=== PATIENT | female | born 1995 | race African-American/Black ===

== ENCOUNTER 2021-06-11 18:22 | Emergency (ER) | payer BC ==
[~2021-06-11] VITALS: Ht 154.9 cm; Wt 108.9 kg
[2021-06-11 18:35] VITALS: BP 124/64
--- NOTE | 2021-06-11 21:17 | NUR ---
PT AMBULATED TO BED #6
[2021-06-11 23:17] LABS: BASOPHILS # (AUTO) 0.1 K/uL (0.00-0.22); BASOPHILS % (AUTO) 0.4 % (0.0-2.0); EOSINOPHILS # (AUTO) 0.2 K/uL (0-0.4); EOSINOPHILS % (AUTO) 1.1 % (0.0-4.0); HEMATOCRIT 35.4 % (36-48); HEMOGLOBIN 11.6 g/dL (12.0-16.0); LYMPHOCYTES # (AUTO) 3.9 K/uL (2.5-16.5); LYMPHOCYTES % (AUTO) 24.5 % (20.5-51.1); MEAN CORPUSCULAR HEMOGLOBIN 27 pg (27-31); MEAN CORPUSCULAR HGB CONC 33 g/dL (33-37); MEAN CORPUSCULAR VOLUME 83.6 fL (80-94); MONOCYTES # (AUTO) 0.8 K/uL (0.8-1.0); NEUTROPHILS # (AUTO) 11.1 K/uL (1.8-7.7); PLATELET COUNT (AUTO) 457 K/uL (140-450); RED BLOOD CELL COUNT(AUTO) 4.24 MIL/uL (4.20-5.40)
[2021-06-11] MEDS ORDERED: KETOROLAC 30 MG/ML VIAL IVP ONE (23:30)
[2021-06-11 23:33] LABS: ALBUMIN 3.6 g/dL (3.4-5.0); ANION GAP 12.5 (8-16); CARBON DIOXIDE 29.1 mmol/L (21-32); CREATININE 0.8 mg/dL (0.6-1.3); POTASSIUM 3.6 mmol/L (3.5-5.1); TOTAL BILIRUBIN 0.1 mg/dL (0.0-1.0)
[2021-06-11 23:35] LABS: CHOL/HDL RATIO 4.2 (1-4.5)
--- NOTE | 2021-06-12 00:28 | NUR ---
PT TAKEN TO CT VIA W/C
[2021-06-12] MEDS ORDERED: LEVOFLOXACIN 500 MG/D5W PREMIX 100 ML IV ONE (01:30)
[2021-06-12] MEDS ORDERED: cefTRIAXone 1,000 MG VIAL ONE (01:43)
[2021-06-12] MEDS ORDERED: AMOX-1000 PO (02:09)
[2021-06-12] MEDS ORDERED: LEVO-315 PO (02:09)
[2021-06-12] MEDS ORDERED: NAPR-54 PO (02:09)
[2021-06-12 03:02] VITALS: BP 132/72
--- NOTE | 2021-06-12 03:04 | NUR ---
PATIENT DC HOME FEEL WELL NOT COMPLAINING OF PAIN VITALS SIGNS IN NORMAL LIMITS SR 83 ON THE MONITOR ALL DC INSTRUCTION GAVE TO THE PATIENT AND EXPLAINED WE RECOMEND TO COMING BACK TO THE HOSPITALS IF THE SYMPTOMS GET WORSE OR NOT IMPROVING //Christina HERNANDEZ
== END 2021-06-12 02:20 | disposition home or self-care (01) ==
LOC: MED 18:22
DX: J18.1 Lobar pneumonia, unspecified organism (principal)
CPT/HCPCS: 36415; 71045; 71250; 80053; 80061; 83605; 83880; 84484; 85025; 85379; 87040; 93005; 96365; 96368; 96375; 99285; J0696; J1885; J1956; Q0092